=== PATIENT | male | born 1955 | race Caucasian/White ===

== ENCOUNTER 2019-10-10 13:02 | Emergency (ER) | payer BC ==
[~2019-10-10] VITALS: Ht 180.3 cm; Wt 126.0 kg
[2019-10-10] MEDS ORDERED: KEFLEX500 M1 PO ×2 (13:47)
[2019-10-10 13:49] VITALS: BP 132/96
== END 2019-10-10 13:51 | disposition home or self-care (01) | DRG 605 ==
LOC: ED 13:02
PROC: 0HQLXZZ Repair Left Lower Leg Skin, External Approach (ICD-10-PCS; principal; 2019-10-10)
DX: S81.812A Laceration without foreign body, left lower leg, initial encounter (principal); I10 Essential (primary) hypertension; W31.1XXA Contact with metalworking machines, initial encounter; Y93.89 Activity, other specified; Y92.009 Unspecified place in unspecified non-institutional (private) residence as the place of occurrence of the external cause

== ENCOUNTER 2019-10-27 16:12 | Emergency (ER) | payer BC ==
[~2019-10-27] VITALS: Ht 180.3 cm; Wt 126.0 kg
[~2019-10-27 16:12] MED LIST: KEFLEX500 M1 PO
[2019-10-27] MEDS ORDERED: KEFLEX500 M1 PO (16:53)
[2019-10-27 16:56] VITALS: BP 144/54
== END 2019-10-27 16:56 | disposition home or self-care (01) | DRG 950 ==
LOC: ED 16:12
DX: S81.812D Laceration without foreign body, left lower leg, subsequent encounter (principal); I10 Essential (primary) hypertension; X58.XXXD Exposure to other specified factors, subsequent encounter

== ENCOUNTER 2021-07-24 18:01 | Emergency (ER) | payer BC ==
[~2021-07-24] VITALS: Ht 182.9 cm; Wt 104.0 kg
[2021-07-24] MEDS ORDERED: LOSARTAN POTASS25 MG PO (19:37)
[2021-07-24] MEDS ORDERED: TORADOL PO (21:58)
[2021-07-24] MEDS ORDERED: TRAMADOL HCL50 MG PO (21:58)
[2021-07-24 22:19] VITALS: BP 177/98
== END 2021-07-24 22:29 | disposition home or self-care (01) | DRG 206 ==
LOC: ED 18:01
DX: S22.31XA Fracture of one rib, right side, initial encounter for closed fracture (principal); S50.01XA Contusion of right elbow, initial encounter; S76.012A Strain of muscle, fascia and tendon of left hip, initial encounter; I10 Essential (primary) hypertension; W11.XXXA Fall on and from ladder, initial encounter